=== PATIENT | male | born 1990 | race Caucasian/White ===

== ENCOUNTER 2017-12-22 01:21 | Emergency (ER) | payer MEDICAID ==
[~2017-12-22] VITALS: Ht 188 cm; Wt 72.7 kg
[2017-12-22 01:25] VITALS: Ht 188 cm; Wt 72.7 kg
[2017-12-22 04:27] VITALS: BP 130/76
== END 2017-12-22 04:28 | disposition home or self-care (01) ==
LOC: D.ER 01:21
DX: S01.01XA Laceration without foreign body of scalp, initial encounter (principal); W26.9XXA Contact with unspecified sharp object(s), initial encounter; Y93.89 Activity, other specified; Y92.019 Unspecified place in single-family (private) house as the place of occurrence of the external cause; F17.200 Nicotine dependence, unspecified, uncomplicated